=== PATIENT | female | born 1965 | race Caucasian/White ===

== ENCOUNTER 2023-03-08 14:10 | Emergency (ER) | payer BC, SELFPAY ==
[2023-03-08 14:26] VITALS: BP 128/78; PULSE 87; RESP 16; TEMP 36.6; O2SAT 96; BMI 37.4
--- NOTE | 2023-03-08 15:46 | CRLHL7_ITS ---
For Patients: As a result of the Century Cures Act, medical imaging exams and procedure reports are released immediately into your electronic medical record. You may view this report before your referring provider. If you have questions, please contact your health care provider. INDICATION: Chemical injury to face TECHNIQUE: CT of the face with 97 cc of Isovue 370 intravenous contrast. Coronal reconstructions are included. COMPARISON: None. FINDINGS: No acute osseous abnormalities. Right frontal scalp soft tissue swelling, measuring up to 8 millimeters in diameter. No organized fluid collection. The orbital contents are normal in appearance. Postop changes paranasal sinus ethmoidectomies and maxillary antrostomies. Moderate mucosal thickening right inferior frontal sinus, ethmoid bowl and right maxillary sinus. The nasal septum is relatively midline. The visualized portions of the brain are normal in appearance. IMPRESSION: 1. Right frontal scalp soft tissue swelling, which could be related to the history of toxic injury or represent cellulitis. No organized fluid collection. No orbital involvement. Please note that all CT scans at this facility use dose modulation, iterative reconstruction, and/or weight-based dosing when appropriate to reduce radiation dose to as low as reasonably achievable. Dictated by Joss Sewell MD @ 03/08/2023 5:58:56 PM (Electronically Signed)
--- NOTE | 2023-03-08 15:51 | ED.SKABFB ---
HPI - Skin/Abscess/Foreign Bdy General Date Seen: 03/08/23 Chief complaint: Skin/Abscess/Foreign Body Stated complaint: lac on forehad possible infection Time Seen by Provider: 03/08/23 15:41 Source: patient Mode of arrival: ambulatory Limitations: no limitations History of Present Illness HPI narrative: Patient is a 57-year-old female with history of hypertension, hypothyroidism presents emergency department for headache and swelling to her right forehead. She states about a week ago she had an ozone high-frequency facial treatment at a spa. She notes over the past couple of days an area on her for done started appear black in the black as been getting worse. Then today she woke up with swelling right to that area. States has associated headache and it feels like a pressure sensation on the forehead. Denies any lightheadedness, dizziness, fevers, chills, abdominal pain, numbness, lightheadedness, dizziness. States she has never had symptoms like this before. Related Data Home Medications Medication Instructions Recorded Confirmed albuterol 90 mcg/actuation aerosol mcg inhalation PRN 03/08/23 inhaler bupropion HCl 100 mg tablet 300 mg PO BID 03/08/23 03/08/23 duloxetine 30 mg capsule,delayed 90 mg PO DAILY 03/08/23 03/08/23 release gabapentin 300 mg capsule 1,200 mg PO DAILY 03/08/23 03/08/23 levothyroxine 100 mcg tablet 100 mcg PO DAILY 03/08/23 03/08/23 (Euthyrox) lisinopril 20 mg tablet 20 mg PO DAILY 03/08/23 03/08/23 omeprazole 40 mg capsule,delayed 40 mg PO DAILY 03/08/23 03/08/23 release semaglutide (weight loss) 0.5 0.5 mg subcut QWEEK 03/08/23 03/08/23 mg/0.5 mL subcutaneous pen injector (Wegovy) zolpidem 5 mg tablet (Ambien) 5 mg PO QHS PRN 03/08/23 03/08/23 Previous Rx's Medication Instructions Recorded cephalexin 500 mg capsule 500 mg PO QID #20 caps 03/08/23 Allergies Allergy/AdvReac Type Severity Reaction Status Date / Time acetaminophen [From Lortab] Allergy Mild Itchiness Verified 03/08/23 17:00 hydrocodone [From Lortab] Allergy Mild Itchiness Verified 03/08/23 17:00 Review of Systems Status of ROS: Reports: 10 or more systems reviewed and unremarkable except as noted in History and below [facility] Social History Smoking Status: Former smoker Do you use any of these nicotine containing products: None Second hand tobacco smoke exposure: No How often do you have a drink containing alcohol: 2-3 times a week AUDIT-C Alcohol total score: 3 Non-prescribed substance use: marijuana (any form) Exam Narrative: Exam Narrative: Const: Well-nourished, Well-developed, in mild distress Eyes: PERRL, no conjunctival injection, and symmetrical lids HENT: Atraumatic external nose and ears. Moist mucous membranes. Swelling to right forehead with a central burn like appearance Neck: Symmetric, trachea midline, No thyromegaly. CVS: RRR, No murmurs or gallops. Peripheral pulses 2+ and equal in all extremities RESP: Unlabored respiratory effort. Clear to auscultation bilaterally. GI: Nontender/Nondistended, No rebound or guarding. MSK:Extremities w/o deformity, Normal Active ROM Skin: Warm, Dry. No rashes or lesions. Neuro: Normal Muscle tone, No focal neurological deficits. Psych: Awake, Alert, & Oriented x3. Appropriate mood and affect. Const: Vital Signs, click to edit/add: Vital Signs - 24 hr 03/08/23 14:26 Temperature 97.8 F Pulse Rate [Pulse Oximeter] 87 Respiratory Rate 16 Blood Pressure [Ri ght Upper Arm] 128/78 Pulse Oximetry 96 Oxygen Delivery Me thod Room Air Course Vital Signs Vital signs: Initial Vital Signs Temperature 97.8 F 03/08/23 14:26 Temperature Source Temporal Artery Scan 03/08/23 14:26 Pulse Rate 87 03/08/23 14:26 Respiratory Rate 16 03/08/23 14:26 Blood Pressure 128/78 03/08/23 14:26 Blood Pressure Mean 94 03/08/23 14:26 Blood Pressure Position Sitting 03/08/23 14:26 Pulse Oximetry 96 03/08/23 14:26 Oxygen Delivery Method Room Air 03/08/23 14:26 Vital Signs Temperature 97.8 F 03/08/23 14:26 Pulse Rate 87 03/08/23 14:26 Respiratory Rate 16 03/08/23 14:26 Blood Pressure 128/78 03/08/23 14:26 Pulse Oximetry 96 03/08/23 14:26 Oxygen Delivery Method Room Air 03/08/23 14:26 Temperature 97.8 F 03/08/23 14:26 Pulse Rate 87 03/08/23 14:26 Respiratory Rate 16 03/08/23 14:26 Blood Pressure 128/78 03/08/23 14:26 Pulse Oximetry 96 03/08/23 14:26 Oxygen Delivery Method Room Air 03/08/23 14:26 Medications Administered Medications: Discontinued Medications Generic Name Dose Route Start Last Admin Trade Name Freq PRN Reason Stop Dose Admin Diphenhydramine HCl 25 mg 03/08/23 16:51 03/08/23 17:11 Diphenhydramine 50 Mg/Ml Inj IVP 03/08/23 16:52 25 mg ONCE ONE Administration Lactated Ringer's 1,000 mls @ 1,000 mls/hr 03/08/23 16:51 03/08/23 17:05 Lactated Ringers 1000 Ml IV 03/08/23 17:50 1,000 mls/hr .Q1H ONE Administration Ketorolac Tromethamine 15 mg 03/08/23 15:49 03/08/23 16:11 Ketorolac 15 Mg/Ml Inj IVP 03/08/23 15:50 15 mg ONCE ONE Administration Metoclopramide HCl 10 mg 03/08/23 16:51 03/08/23 17:05 Metoclopramide Hcl 5 Mg/Ml Inj IVP 03/08/23 16:52 10 mg ONCE ONE Administration MDM - Skin/Abscess/Foreign Bdy MDM Narrative Medical decision making narrative: Patient is a 57-year-old female presents emergency department for right forehead swelling any headache. She states the flash area her forehead has been getting bigger over the past couple days initially started after the high-frequency treatment at the spot. States then today she developed swelling to the forehead. Denies any other symptoms other than a associated headache. Headache seems most likely from the facial swelling and and I believe head imaging is necessary as she is having no neurological symptoms. The lesion looks like a burn but considering everything else I want make sure there is no underlying necrotizing disease. Were ordered a CT scan of the face with IV contrast. Will also receive BC, BMP. She was initially given Toradol for pain. Toradol 30 not resolve her symptoms so was given a migraine cocktail and after this her symptoms have resolved. Lab work returned showing no concerning abnormalities. Imaging shows the swelling but no clear cellulitis or necrotizing disease. It possibly could be cellulitis though we will start her on antibiotics. No signs of more concerning disease. She is agreeable with this plan. We discharged with Keflex and she agrees with this plan. Lab Data Labs: Lab Results 03/08/23 Range/Units 16:05 WBC 7.51 (4.50-11.00) K/uL RBC 3.72 L (4.00-5.20) m/uL Hgb 11.3 L (12.0-16.0) gm/dL Hct 35.1 (33.0-51.0) % MCV 94 (80-100) fL MCH 30 (26-34) pg MCHC 32 (32-36) gm/dL RDW Coeff of Rainer 13.3 (11.5-15.5) % Plt Count 208 (140-440) K/uL Neut % (Auto) 64.6 (42.0-72.0) % Lymph % (Auto) 22.8 (20-44) % Citrus % (Auto) 11.9 H (0.0-11.0) % Eos % (Auto) 0.3 (0.0-7.0) % Baso % (Auto) 0.3 (0.0-3.0) % Neut # (Auto) 4.86 (1.7-7.0) K/uL Lymph # (Auto) 1.71 (0.90-2.90) K/uL Citrus # (Auto) 0.90 (0.00-0.90) K/UL Eos # (Auto) 0.02 (0.00-0.50) K/uL Baso # (Auto) 0.02 (0.00-0.30) K/uL Abs Immat Gran (auto) 0.01 (0.00-0.30) K/uL Imm/Tot Granulo (auto) 0.1 % Sodium 137 (135-149) mmol/L Potassium 4.0 (3.6-5.1) mmol/L Chloride 103 (96-114) mmol/L Carbon Dioxide 27 (20-32) mmol/L Anion Gap 7 (7-15) mEq/L BUN 10 (7-30) mg/dL Creatinine 0.8 (0.5-1.5) mg/dL Estimated Creat Clear 57.84 Estimated GFR 85 ml/min Glucose 91 (60-115) mg/dL Calcium 8.3 L (8.4-10.6) mg/dL Imaging Data Facial bone CT: Radiologist's impression: 1. Right frontal scalp soft tissue swelling, which could be related to the history of toxic injury or represent cellulitis. No organized fluid collection. No orbital involvement. Please note that all CT scans at this facility use dose modulation, iterative reconstruction, and/or weight-based dosing when appropriate to reduce radiation dose to as low as reasonably achievable. Dictated by Joss Sewell MD @ 03/08/2023 5:58:56 PM Discharge Plan Discharge Clinical Impression: Cellulitis Patient Disposition: Home, Self-Care Condition: Improved Instructions: Cellulitis (ED) Additional Instructions: We cannot say for certain if he of cellulitis or not or if this is just a result of the treatment she received so do that we will start you on antibiotics. If symptoms persist follow-up with the primary care provider Prescriptions: New cephalexin 500 mg capsule 500 mg PO QID Qty: 20 0RF No Action duloxetine 30 mg capsule,delayed release(DR/EC) 90 mg PO DAILY levothyroxine [Euthyrox] 100 mcg tablet 100 mcg PO DAILY gabapentin 300 mg capsule 1,200 mg PO DAILY lisinopril 20 mg tablet 20 mg PO DAILY omeprazole 40 mg capsule,delayed release(DR/EC) 40 mg PO DAILY bupropion HCl 100 mg tablet 300 mg PO BID Wegovy 0.5 mg/0.5 mL pen injector 0.5 mg subcut QWEEK zolpidem [Ambien] 5 mg tablet 5 mg PO QHS PRN Rx Instructions: may repeat once if no response in 30-60 minutes albuterol 90 mcg/actuation aerosol inhalation PRN Follow Up/Referrals: Provider,Not a Local [Primary Care Provider] - Stand Alone Forms: MyHealth Info Instructions
[2023-03-08] MEDS: KETOROLAC 15 MG/ML inj IVP (16:11)
[2023-03-08 16:15] LABS: Basophils Absolute Auto 0.02 K/uL (0.00-0.30); Basophils Percent Auto 0.3 % (0.0-3.0); Eosinophils Absolute Auto 0.02 K/uL (0.00-0.50); Eosinophils Percent Auto 0.3 % (0.0-7.0); Hematocrit 35.1 % (33.0-51.0); Hemoglobin* 11.3 gm/dL (12.0-16.0); Immature Granulocytes Abs Auto 0.01 K/uL (0.00-0.30); Immature Granulocytes Pct Auto 0.1 %; Lymphocytes Absolute Auto 1.71 K/uL (0.90-2.90); Lymphocytes Percent Auto 22.8 % (20-44); Mean Corpuscular HGB Conc 32 gm/dL (32-36); Mean Corpuscular Hemoglobin 30 pg (26-34); Mean Corpuscular Volume 94 fL (80-100); Monocytes Percent Auto 11.9 % (0.0-11.0); Neutrophils Absolute Auto 4.86 K/uL (1.7-7.0); Neutrophils Percent Auto 64.6 % (42.0-72.0); Platelet Count* 208 K/uL (140-440); RDW Coefficient of Variation % 13.3 % (11.5-15.5); Red Blood Count 3.72 m/uL (4.00-5.20); White Blood Count* 7.51 K/uL (4.50-11.00)
[2023-03-08 16:18] LABS: Slide Review Reflex No
[2023-03-08 16:40] LABS: Chloride* 103 mmol/L (96-114); Sodium* 137 mmol/L (135-149)
[2023-03-08 16:43] LABS: Anion Gap 7 mEq/L (7-15); Blood Urea Nitrogen* 10 mg/dL (7-30); Calcium* 8.3 mg/dL (8.4-10.6); Carbon Dioxide* 27 mmol/L (20-32); Creatinine* 0.8 mg/dL (0.5-1.5); Est. Creatinine Clearance* 57.84; Estimated Glomerular Filt Rate 85 ml/min; Glucose* 91 mg/dL (60-115)
[2023-03-08] MEDS: METOCLOPRAMIDE HCL 5 MG/ML INJ 10 MG IVP (17:05)
[2023-03-08] MEDS: LACTATED RINGERS 1000 ML 1,000 ML IV (17:05)
[2023-03-08] MEDS: diphenhydrAMINE 50 MG/ML inj 25 MG IVP (17:11)
== END 2023-03-08 18:53 | disposition home or self-care (01) ==
PROVIDERS: Emergency Provider Student in an Organized Health Care Education/Training Program
DX: L03.211 Cellulitis of face (principal)
CPT/HCPCS: 36415; 70487; 80048; 85025; 96374; 96375; 99283; 99284; 99285; J1200; J1885; J2765; J7120; Q9967